=== PATIENT | female | born 1930 | race Caucasian/White ===

== ENCOUNTER 2017-04-12 12:57 | Emergency (ER) ==
[2017-04-12 13:03] VITALS: BP 111/72; TEMP 98.7; BMI 25.0
--- NOTE | 2017-04-12 13:49 | CT ---
EXAM: Noncontrast CT of the abdomen and pelvis HISTORY: Pain COMPARISON: None available. TECHNIQUE: Noncontrast CT of the abdomen and pelvis FINDINGS: There is mild bibasilar atelectasis. A right middle lobe calcified granuloma is seen. Atherosclerot ic calcifications are present including the coronary arteries. Noncontrast technique limits evaluation of the abdominal viscera. The gallbladder is borderline diste nded. A small gallstone is seen. The unenhanced spleen and adrenals are unremarkable. The pancreas is atrophic. There is borderline right and mild left renal cortical thinning. No renal calculi are identified. No left ureteral calculi are seen. The distal right ureter is obscured, however no calc ifications are seen in its expected location this suggest calculi. The stomach is underdistended. No abnormal small bowel dilation is identified. Diverticulosis is iden tified. There is mild wall thickening of the sigmoid colon in the region of diverticulosis without g ross adjacent inflammatory changes. There is wall thickening of the mid to distal transverse colon a nd descending colon. Minimal fat stranding seen adjacent to the descending colon. The appendix is not abnormally enlarged. No free air or free fluid is seen. There is calcified atherosclerotic plaque of the aorta and its br anches. There is mild levocurvature of the lumbar spine. There is remote appearing compression defor mity of the T12, L1 and L4 vertebral bodies. There is approximately 2 mm of retropulsion of the the T12 vertebral body. There is multilevel degenerative disc disease which is up to moderate to severe at the left aspect of L5-S1. Multilevel facet arthropathy is also present. IMPRESSION: Mild transverse and descending colonic wall thickening suggesting colitis. Sigmoid diverticulosis. Mild sigmoid colon wall thickening may be secondary to underdistension or co litis, however a component of mild diverticulitis would be difficult to exclude. Borderline distended gallbladder containing a gallstone. Atherosclerosis. Remote appearing compression deformity of the T12, L1 and L4 vertebral bodies.
--- NOTE | 2017-04-12 14:55 | ED.PDOC ---
General ED Provider: Dr. BRIDGET EMERSON Chief Complaint: Diarrhea Stated Complaint: DIARRHEA Time Seen by Physician: 13:00 Mode of Arrival: Walk-In Information Source: Patient Exam Limitations: No limitations Primary Care Provider: MIKAYLA LARIOS Nursing and Triage Documentation Reviewed and Agree: Yes Reviewed sepsis parameters & appropriate labs ordered?: Yes System Inflammatory Response Syndrome: Not Applicable Sepsis Protocol: For patient's 13 years and over: Temp is 96.8 and below OR 101 and greater Pulse >90 BPM Resp >20/minute Acutely Altered Mental Status Are patient's symptoms suggestive of a new infection, such as: -Pneumonia -Skin, Soft Tissue -Endocarditis -UTI -Bone, Joint Infection -Implantable Device -Acute Abdominal Infection -Wound Infection -Meningitis -Blood Stream Catheter Infection -Unknown GI Complaint Exam - Vomiting/Diarrhea Complaint/Exam Symptoms Are: Still present Episodes of Vomiting over last 24 Hours: 0 Episodes of Diarrhea Over Last 24 Hours: 4 Initial Severity: Mild Current Severity: None Character of Vomiting: Reports: Non-bilious Aggravating: Reports: None Alleviating: Reports: None Associated Signs and Symptoms: Denies: Dizziness, Light-headedness, Melena, Hematemesis, Fever, Abdominal pain, Cramping Related History: Reports: Similar episode Non-GI Risk Factors: Reports: None Surgical Obstruction Risk Factors: Reports: None Related Surgical History: Reports: None Abdominal Findings: Present: None Differential Diagnoses: Viral Gastroenteritis Review of Systems - Review Of Systems Constitutional: Reports: No symptoms Eyes: Reports: No symptoms Ears, Nose, Mouth, Throat: Reports: No symptoms Respiratory: Reports: No symptoms Cardiac: Reports: No symptoms GI: Reports: Diarrhea : Reports: No symptoms Musculoskeletal: Reports: No symptoms Skin: Reports: No symptoms Neurological: Reports: No symptoms Endocrine: Reports: No symptoms Hematologic/Lymphatic: Reports: No symptoms All Other Systems: Reviewed and Negative Past Medical History - Past Medical History Previously Healthy: Yes Endocrine: Reports: None Cardiovascular: Reports: Hypertension Respiratory: Reports: None Hematological: Reports: None Gastrointestinal: Reports: None Genitourinary: Reports: None Neuro/Psych: Reports: None Musculoskeletal: Reports: None Cancer: Reports: None Last Menstrual Period: menopause - Surgical History General Surgical History: Reports: None - Family History Family History: Reports: None - Social History Smoking Status: Never smoker Hx Substance Use: No Alcohol Screening: None Physical Exam - Physical Exam Appearance: Well-appearing, No pain distress, Well-nourished Eyes: KRYSTAL, EOMI, Conjunctiva clear ENT: Ears normal, Nose normal, Oropharynx normal Respiratory: Airway patent, Breath sounds clear, Breath sounds equal, Respirations nonlabored Cardiovascular: RRR, Pulses normal, No rub, No murmur GI/: Soft, Nontender, No masses, Bowel sounds normal, No Organomegaly Musculoskeletal: Normal strength, ROM intact, No edema, No calf tenderness Skin: Warm, Dry, Normal color Neurological: Sensation intact, Motor intact, Reflexes intact, Cranial nerves intact, Alert, Oriented Psychiatric: Affect appropriate, Mood appropriate Interpretation - Radiology Interpretation Radiology Interpretation By: Radiologist Radiology Results: No acute changes Critical Care Note - Critical Care Note Total Time (mins): 0 Course - Course Hematology/Chemistry: 04/12/17 13:30 04/12/17 13:30 Orders, Labs, Meds: Lab Review 04/12/17 04/12/17 04/12/17 13:30 13:30 13:42 WBC 7.96 RBC 4.09 L Hgb 13.3 Hct 39.0 MCV 95.4 MCH 32.5 H MCHC 34.1 RDW Coeff of Rj 13.2 Plt Count 205 Immature Gran % (Auto) 0.4 Neut % (Auto) 66.6 Lymph % (Auto) 20.1 [place] % (Auto) 10.7 H Eos % (Auto) 1.9 Baso % (Auto) 0.3 Immature Gran # (Auto) 0.0 Neut # 5.3 Lymph # 1.6 [place] # 0.9 Eos # 0.2 Baso # 0.0 Sodium 139 Potassium 4.2 Chloride 103 Carbon Dioxide 26 Anion Gap 14.2 BUN 15 Creatinine 0.92 Estimated GFR (MDRD) 58.00 BUN/Creatinine Ratio 16.30 Glucose 102 Calcium 8.9 Total Bilirubin 1.1 AST 17 ALT 6 L Alkaline Phosphatase 65 Total Protein 6.6 Albumin 2.9 L Globulin 3.7 Albumin/Globulin Ratio 0.78 Influenza A (Rapid) Negative by naat Influenza B (Rapid) Negative by naat Orders Category Date Time Status CBC W/ AUTO DIFF Stat LAB 04/12/17 13:30 Completed COMPREHENSIVE METABOLIC PANEL Stat LAB 04/12/17 13:30 Completed MOLECULAR FLU A/B Stat LAB 04/12/17 13:[address] ABDOMEN/PELVIS WO CONTRAST Stat RADS 04/12/17 13:21 Completed Vital Signs: Temp Pulse Resp BP Pulse Ox 04/12/17 12:58 98.7 F 106 H 20 111/72 94 L Departure - Departure Time of Disposition: 14:54 Disposition: HOME SELF-CARE Discharge Problem: Diarrhea Instructions: Chronic Diarrhea (ED) Condition: Good Pt referred to PMD for follow-up: Yes Additional Instructions: Please call your Family Physician as soon as possible to schedule a follow-up appointment. Allergies/Adverse Reactions: Allergies No Known Allergies Allergy (Verified 04/12/17 13:05) Home Medications: Ambulatory Orders Aspirin [Aspirin EC] 81 mg PO DAILYWM 03/03/13 Metoprolol Succinate [Toprol Xl] 50 mg PO DAILYWM 03/03/13
== END 2017-04-12 15:05 | disposition home or self-care (01) ==
LOC: ED 12:57
DX: R19.7 Diarrhea, unspecified (principal)
CPT/HCPCS: 36415; 80053; 85025; 87502; 99283

== ENCOUNTER 2018-07-28 09:35 | Outpatient (POV) | payer OTHER | END 2018-07-28 17:00 | LOC: OUTPT 09:35 | PROVIDERS: ATTEND Otolaryngology | DX: H91.90 Unspecified hearing loss, unspecified ear (principal) | CPT/HCPCS: 92557 ==

== ENCOUNTER 2018-09-13 06:28 | Emergency (ER) | payer OTHER ==
[2018-09-13 06:37] VITALS: BP 150/72; TEMP 99.5; BMI 23.1
[2018-09-13] MEDS ORDERED: SODIUM CHLORIDE 1,000 ML IV STA (07:10)
--- NOTE | 2018-09-13 07:14 | ED.PDOC ---
General ED Provider: Dr. DUANE JONES Chief Complaint: Diarrhea Stated Complaint: Daughter reports diarrhea thru night with nausea - no emesis Time Seen by Physician: 07:00 Mode of Arrival: Walk-In Information Source: Patient, Family Exam Limitations: No limitations Primary Care Provider: MIKAYLA LARIOS Nursing and Triage Documentation Reviewed and Agree: Yes Does patient meet sepsis criteria?: No System Inflammatory Response Syndrome: Not Applicable Sepsis Protocol: For patient's 13 years and over: Temp is 96.8 and below OR 101 and greater Pulse >90 BPM Resp >20/minute Acutely Altered Mental Status Are patient's symptoms suggestive of a new infection, such as: -Pneumonia -Skin, Soft Tissue -Endocarditis -UTI -Bone, Joint Infection -Implantable Device -Acute Abdominal Infection -Wound Infection -Meningitis -Blood Stream Catheter Infection -Unknown GI Complaint Exam - Vomiting/Diarrhea Complaint/Exam Onset/Duration: During the night Symptoms Are: Still present Episodes of Vomiting over last 24 Hours: 0 Episodes of Diarrhea Over Last 24 Hours: 5 Initial Severity: Moderate Current Severity: Mild Character of Vomiting: Denies: Non-bilious (No emesis - nausea only), Bilious, Bloody, Retching Character of Diarrhea: Reports: Watery (loose stool; poorly formed) Aggravating: Reports: None Alleviating: Reports: None Associated Signs and Symptoms: Reports: Abdominal pain, Cramping Related History: Denies: Similar episode, Recent antibiotics Review of Systems - Review Of Systems Constitutional: Reports: Malaise Respiratory: Reports: No symptoms Cardiac: Reports: No symptoms GI: Reports: Abdominal pain (cramping with onset of diarrhea during the night), Nausea : Reports: No symptoms All Other Systems: Reviewed and Negative Past Medical History - Past Medical History Previously Healthy: Yes Endocrine: Reports: None Cardiovascular: Reports: Hypertension Respiratory: Reports: None Hematological: Reports: None Gastrointestinal: Reports: None Genitourinary: Reports: None Neuro/Psych: Reports: None Musculoskeletal: Reports: None Cancer: Reports: None Last Menstrual Period: na - Surgical History General Surgical History: Reports: None - Family History Family History: Reports: None - Social History Smoking Status: Never smoker Hx Substance Use: No Alcohol Screening: None - Immunizations Tetanus Shot up to Date: No Physical Exam - Physical Exam Appearance: Well-appearing Pain Distress: Mild (with cramping) Eyes: KRYSTAL, EOMI Neck: Supple Respiratory: Airway patent, Breath sounds clear, Breath sounds equal Cardiovascular: RRR, Pulses normal GI/: Soft, Nontender, Bowel sounds hyperactive Musculoskeletal: Normal strength Skin: Warm, Dry, Normal color Neurological: Sensation intact, Motor intact, Alert, Oriented Psychiatric: Affect appropriate Interpretation - Radiology Interpretation Radiology Interpretation By: Radiologist Exam Interpreted: CT Scan (Abd/Pel; GB distended - possible stone CBD with distention up to 1.1 cm) Physician Notification - Case Discussed Physician Notified: Dr. Larios Time of Notification: 10:10 (Suggest ERCP) Physician Notified: Dr. Navarro Hospitalist [facility] Time of Notification: 10:45 (Will coordinate with GI for possible acceptance and care) Critical Care Note - Critical Care Note Total Time (mins): 40 Comments: Review of clinical picture, history, lab results, CT Scan and consultation with PCP and transfer options including hospitalist at [facility]. Course - Course Hematology/Chemistry: 09/13/18 07:27 09/13/18 07:27 Orders, Labs, Meds: Lab Review 09/13/18 09/13/18 09/13/18 07:27 07:27 07:27 WBC 10.56 H RBC 4.25 Hgb 13.0 Hct 40.5 MCV 95.3 MCH 30.6 MCHC 32.1 RDW Coeff of Rj 13.5 Plt Count 166 Immature Gran % (Auto) 0.5 Neut % (Auto) 89.7 Lymph % (Auto) 4.2 L [place] % (Auto) 5.5 Eos % (Auto) 0.0 Baso % (Auto) 0.1 Immature Gran # (Auto) 0.1 Neut # (Auto) 9.5 H Lymph # (Auto) 0.4 L [place] # (Auto) 0.6 Eos # (Auto) 0.0 Baso # (Auto) 0.0 Sodium 138.1 Potassium 4.15 Chloride 103.9 Carbon Dioxide 28.8 Anion Gap 9.55 BUN 20.6 H Creatinine 0.99 Estimated GFR (MDRD) 53.00 BUN/Creatinine Ratio 20.80 Glucose 154.7 H Calcium 9.26 Total Bilirubin 3.86 H AST 683.1 H ALT 229.9 H Alkaline Phosphatase 100.8 Total Protein 6.99 Albumin 3.85 Globulin 3.14 Albumin/Globulin Ratio 1.22 Lipase 934.9 H Orders Category Date Time Status NPO REMINDER: IMAGING ONCE CARE 06/02/19 08:48 Completed CBC W/ AUTO DIFF Stat LAB 09/13/18 07:27 Completed CMP [COMPREHENSIVE METABOLIC PANEL] Stat LAB 09/13/18 07:27 Completed LIPASE Stat LAB 09/13/18 07:27 Completed Ondansetron HCl/Pf [Zofran 4 mg/2 ml] MEDS 09/13/18 07:37 Discontinued 4 mg IVP ONCE STA Sodium Chloride 0.9% [Sodium Chloride] 1,000 ml MEDS 09/13/18 07:10 Active IV 125 mls/hr CT ABDOMEN/PELVIS W CONTRAST Stat RADS 09/13/18 08:47 Completed Medications Generic Name Dose Route Start Last Admin Trade Name Freq PRN Reason Stop Dose Admin Sodium Chloride 1,000 mls @ 125 mls/hr 09/13/18 07:10 09/13/18 07:46 Sodium Chloride IV 09/13/18 15:09 125 mls/hr .Q8H STA Administration Discontinued Medications Generic Name Dose Route Start Last Admin Trade Name Freq PRN Reason Stop Dose Admin Ondansetron HCl 4 mg 09/13/18 07:37 09/13/18 07:46 Zofran 4 Mg/2 Ml IVP 09/13/18 07:38 4 mg ONCE STA Administration Vital Signs: Temp Pulse Resp BP Pulse Ox 09/13/18 06:30 99.5 F 73 20 150/72 H 95 Departure - Departure Time of Disposition: 10:58 Disposition: TSF SHORT-TRM HOSP Discharge Problem: Gallbladder disease Condition: Stable Pt referred to PMD for follow-up: Yes (Follow up with primary care when out of hospital) IPMP verified?: No (no CS prescribed) Allergies/Adverse Reactions: Allergies No Known Allergies Allergy (Verified 04/12/17 13:05) Home Medications: Ambulatory Orders Aspirin [Aspirin EC] 81 mg PO DAILYWM 03/03/13 Metoprolol Succinate [Toprol Xl] 50 mg PO DAILYWM 03/03/13 Disposition Discussed With: Patient (and niece)
[2018-09-13] MEDS ORDERED: ZOFRAN 4 MG/2 ML IVP STA (07:37)
--- NOTE | 2018-09-13 10:01 | CT ---
EXAM: CT abdomen pelvis with contrast HISTORY: Elevated liver function tests COMPARISON: 04/12/2017 TECHNIQUE: CT abdomen pelvis performed with intravenous contrast. FINDINGS: Granulomas calcification right lung base. Mild bibasilar subsegmental atelectasis and/or scarring. No free air. No acute abnormalities of the bones. Degenerative change in the spine. Chr onic compression deformities T12, L1, L4 appear unchanged. Degenerative change in the spine. Heart top normal in size. Liver appears normal. Pancreas unremarkable. Spleen unremarkable. Adrenals un remarkable. Sub centimeter hypodensity left kidney, too small to characterize. Nonspecific left per inephric stranding. Bladder unremarkable. Aorta normal in caliber. Moderate atherosclerosis. No l ymphadenopathy or ascites. Small hiatal hernia. Question gastric wall thickening versus underdisten verna. No dilated loops small bowel. Normal appendix probably visualized on axial image 102. Coloni c diverticulosis, extensive in the sigmoid colon. Possible endometrial thickening measuring approxim ate 8 mm.Heterogeneity within the gallbladder may represent gallstones and/or sludge. Gallbladder is distended probable gallbladder wall thickening. Predominately central intrahepatic biliary duct dil ation. Dilation of the common bile duct measuring up to 1.1 cm. Small possible calcification in the pancreatic head region, though favored external to the common bile duct. IMPRESSION: 1. Gallbladder is distended with probable gallbladder wall thickening. Heterogeneity within the gal lbladder may represent gallstones and/or sludge. Cholecystitis is possible, or distension may be sec ondary to finding #2 . Recommend correlation with ultrasound. 2. Predominately central intrahepatic biliary duct dilation and dilation of the common bile duct howard suring up to 1.1 cm. Small possible calcification in the pancreatic head region, though favored exter nal to the common bile duct. Correlation with MRCP is recommended. 3. Nonspecific left perinephric stranding. Infectious etiology is possible. Recommend correlation with urinalysis. 4. Gallbladder wall thickening versus underdistension. Gastritis is possible. 5. Colonic diverticulosis, extensive in the sigmoid colon. 6. Possible endometrial thickening measuring approximately 8 mm. Recommend correlation with non-cierra rgent transabdominal/transvaginal pelvic ultrasound. 7. Small hiatal hernia
== END 2018-09-13 12:00 | disposition short-term general hospital (02) ==
LOC: ED 06:28
DX: K82.9 Disease of gallbladder, unspecified (principal); R10.9 Unspecified abdominal pain; R19.7 Diarrhea, unspecified; I10 Essential (primary) hypertension
CPT/HCPCS: 36415; 80053; 83690; 85025; 96360; 96375; 99285

== ENCOUNTER 2018-09-13 12:35 | Outpatient (CLI) | payer OTHER ==
[2018-09-13 06:37] VITALS: BMI 23.1
== END 2018-09-13 14:00 | disposition short-term general hospital (02) ==
LOC: AMBL 12:35
PROVIDERS: ATTEND Emergency Medicine
DX: K82.9 Disease of gallbladder, unspecified (principal); I10 Essential (primary) hypertension